=== PATIENT | female | born 1970 | race Caucasian/White ===

== ENCOUNTER 2017-02-02 07:10 | Day surgery (SDC) | payer OTHER ==
[2017-01-19 09:59] VITALS: BP 160/81
[~2017-02-02] VITALS: Ht 147.3 cm; Wt 66.0 kg
[~2017-02-02 07:10] MED LIST: IBUP-1223 PO; IBUP200C5 PO; No meds per pt.; OXYC5CAP2 PO; TAMO20TA PO
[2017-02-02] MEDS ORDERED: THROMBIN 5,000 UNIT VIAL TP ONE (07:14)
[2017-02-02] MEDS ORDERED: BACITRACIN 50,000 UNIT ONE (07:14)
[2017-02-02] MEDS ORDERED: BUPIVACAINE/PF 0.5% ONE (07:14)
[2017-02-02] MEDS ORDERED: EPINEPHRINE 1 MG/ML, 1ML ONE (07:14)
[2017-02-02] MEDS ORDERED: LACTATED RINGERS 1,000 ML IV SCH (07:34)
[2017-02-02 07:37] VITALS: BP 160/81
[2017-02-02] MEDS ORDERED: LIDOCAINE 1%, 2ML SQ PRN (08:00)
[2017-02-02] MEDS ORDERED: MIDAZOLAM 1 MG/ML, 2ML ONE (09:08)
[2017-02-02] MEDS ORDERED: FENTANYL PF 100 MCG/2ML ONE (09:08)
[2017-02-02] MEDS ORDERED: ACETAMINOPHEN 325 MG TABLET PO PRN (10:00)
[2017-02-02] MEDS ORDERED: PROMETHAZINE 25 MG/ML, 1ML IV PRN (10:00)
[2017-02-02] MEDS ORDERED: HYDROmorphone 1 MG/ML, 1ML IV PRN (10:00)
[2017-02-02] MEDS ORDERED: OXYcodone 5 MG/5 ML ORAL.SOL UDC PO PRN (10:00)
[2017-02-02] MEDS ORDERED: hydrALAzine 20 MG/ML, 1ML IV PRN (10:00)
[2017-02-02] MEDS ORDERED: LORazepam 2 MG/ML, 1ML IVPush PRN (10:00)
[2017-02-02] MEDS ORDERED: MEPERIDINE/PF 25MG/0.5ML IVPush PRN (10:00)
[2017-02-02] MEDS ORDERED: ONDANSETRON 2MG/ML, 2ML IVPush PRN (10:00)
[2017-02-02] MEDS ORDERED: LABETALOL 5MG/ML, 20ML IV PRN (10:00)
[2017-02-02] MEDS ORDERED: FENTANYL PF 100 MCG/2ML IV PRN (10:00)
[2017-02-02] MEDS ORDERED: ACETAMINOPHEN 650 MG/20.3 ML UDC ONE (10:15)
[2017-02-02] MEDS ORDERED: HYDROmorphone 1 MG/ML, 1ML ONE (10:15)
[2017-02-02] MEDS ORDERED: OXYcodone 5 MG/5 ML ORAL.SOL UDC ONE (10:15)
[2017-02-02] MEDS ORDERED: PROMETHAZINE 25 MG/ML, 1ML ONE (13:16)
[2017-02-02] MEDS ORDERED: PROMETHAZINE 25 MG/ML, 1ML IM PRN (13:30)
[2017-02-02] MEDS ORDERED: OXYcodone/APAP 10/325MG TABLET PO PRN (16:30)
[2017-02-02] MEDS ORDERED: PROPOFOL 10 MG/ML, 20ML ONE (17:20)
[2017-02-02] MEDS ORDERED: ROCURONIUM 10 MG/ML,10ML ONE (17:20)
[2017-02-02] MEDS ORDERED: ONDANSETRON 2MG/ML, 2ML ONE (17:20)
[2017-02-02] MEDS ORDERED: KETAMINE 10 MG/ML, 20ML ONE (17:20)
[2017-02-02] MEDS ORDERED: CEFAZOLIN 1,000 MG ONE (17:20)
[2017-02-02] MEDS ORDERED: DEXAMETHASONE 4 MG/ML, 1ML ONE (17:20)
== END 2017-02-02 16:45 ==
LOC: OUT 07:10
PROVIDERS: ATTEND Neurological Surgery
DX: M54.17 Radiculopathy, lumbosacral region (principal); M47.817 Spondylosis without myelopathy or radiculopathy, lumbosacral region; M48.061 Spinal stenosis, lumbar region without neurogenic claudication
CPT/HCPCS: 63047; 63048; 72100; J0171; J0690; J1100; J1170; J2250; J2405; J2550; J2704; J3010; J3490; J7120

== ENCOUNTER → 2017-02-07 | Outpatient (CLI) | payer OTHER | END | disposition home or self-care (01) | LOC: CFH 13:32 | PROVIDERS: ATTEND Internal Medicine | DX: N63.21 Unspecified lump in the left breast, upper outer quadrant (principal); Z85.3 Personal history of malignant neoplasm of breast | CPT/HCPCS: 76641; G0204 ==

== ENCOUNTER → 2018-03-20 | Outpatient (CLI) | payer OTHER ==
[~2018-03-20] MED LIST changes: +IBUP-1623 PO; -IBUP200C5 PO
== END | disposition home or self-care (01) ==
LOC: CFH 13:37
PROVIDERS: ATTEND Internal Medicine
DX: D05.12 Intraductal carcinoma in situ of left breast (principal)
CPT/HCPCS: 77066

== ENCOUNTER → 2020-03-04 | Outpatient (CLI) | payer OTHER | END | disposition home or self-care (01) | LOC: CFH 10:51 | PROVIDERS: ATTEND Internal Medicine | DX: R92.1 Mammographic calcification found on diagnostic imaging of breast (principal); D05.12 Intraductal carcinoma in situ of left breast; N64.4 Mastodynia | CPT/HCPCS: 77062; 77066; G0279 ==